=== PATIENT | female | born 1970 | race Caucasian/White ===

== ENCOUNTER 2016-05-14 13:52 | Emergency (ER) | payer OTHER ==
--- NOTE | 2016-05-14 15:02 | DIAGNOSTIC IMAGING REPORT ---
PROCEDURE: XR THORACIC SPINE 3 VIEWS INDICATION: TRAUMA/INJURY TECHNIQUE: Three views. COMPARISON: None. FINDINGS: Osseous structures and disc spaces are normal. No evidence of an acute process or fracture. IMPRESSION: 1. Negative thoracic spine.
--- NOTE | 2016-05-14 15:03 | DIAGNOSTIC IMAGING REPORT ---
PROCEDURE: XR LUMBAR SPINE 2 OR 3 VIEWS INDICATION: TRAUMA/INJURY TECHNIQUE: Three views. COMPARISON: None. FINDINGS: Osseous structures and disc spaces are normal. No evidence of an acute process or fracture. IMPRESSION: 1. Negative lumbar spine.
--- NOTE | 2016-05-14 15:11 | ED CLINICAL REPORT ---
Clinical Report - Physicians/Mid Levels [facility] [address] [place] [address] 05/14/2016 13:52 [id number] Time Seen: 14:08 May 14 2016. Arrived- By private vehicle. Historian- patient, family and significant other. HISTORY OF PRESENT ILLNESS Location of injuries- mid and lower back. Chief Complaint: FALL. The injury occurred just prior to arrival. Occurred at home. Fell. No fainting episodes. The patient complains of mild pain and moderate pain. No neck pain or loss of consciousness. (fell down 4-5 steps laminte at home , no loc, haines been in shock, not able to bear weight due to pain). REVIEW OF SYSTEMS No loss of vision, chest pain, weakness, headache or nausea. No abdominal pain, laceration or vomiting. All systems otherwise negative, except as recorded above. PAST HISTORY Tetanus immunization status is up-to-date. SOCIAL HISTORY Never smoker. Alcohol use. History of drug use: marijuana. Not an IV drug user. ADDITIONAL NOTES The nursing notes have been reviewed. PHYSICAL EXAM Vital Signs: 05/14/2016 14:13 BP: 107/56. HR: 65. RR: 18. O2 saturation: 100%. Temp: 98.9 F. Appearance: Alert. Appears to be in pain. Patient in mild distress. No acute distress. No backboard or C-collar. Head: Head non-tender. No Simeon's sign. Eyes: No abnormal funduscopic findings. No ocular injury. Neck: Painless ROM. Non-tender. Posterior neck: No tenderness or swelling. CVS: Heart sounds normal. Respiratory: Breath sounds normal. Chest nontender. No chest wall injury or decreased breath sounds. Abdomen: No visible injury. Soft. Back: No tenderness. ROM normal. Skin: Skin intact. Skin warm. Extremities: Normal inspection. No abrasions. Pelvis stable. Neuro: Omar Coma Scale: 15- eyes open spontaneously (4); best verbal response- oriented x 3 (5); best motor response- obeys commands (6). Oriented X 3. No alteration in mental status. LABS, X-RAYS, AND EKG X-Rays: LS spine series. T-Spine X-rays: (IMPRESSION: 1. Negative thoracic spine. Electronically Final signed by:Alessio Stuart MD 05/14/2016 3:05:57 PM). LS-Spine X-rays: (IMPRESSION: 1. Negative lumbar spine. Electronically Final signed by:Alessio Stuart MD 05/14/2016 3:06:40 PM). PROGRESS AND PROCEDURES Course of Care: Pt with no signs of fx. No injury to head/ neck. NO le pain or swelling. Pt able to stand/ ambulate with assistance, at bedside. XR negative. Pt given pain control in ER. Stable. To f/u outpatient. 05/14/2016 15:20 BP: 104/59. HR: 70. RR: 16. O2 saturation: 100%. Temp: 98.0 F. Patient is stable. Physical exam findings are improved. Symptoms better. Patient/family counseled. Disposition: Discharged. CLINICAL IMPRESSION Contusion to the lower back, right and left buttocks and right forearm. INSTRUCTIONS Apply ice. Prescription Medications: Hydrocodone/APAP 5mg / 325mg: take 1 orally every 6 hours as needed for pain. Dispense twelve (12). No refill. Ibuprofen 800 mg tablets: take 1 tablet orally every 8 hours for 5 days, as needed for pain. Dispense fifteen (15). No refill. Follow-up: Follow up with your doctor in three days. (Electronically signed by Guillermina Duarte P.A.-C 05/14/2016 15:46)
--- NOTE | 2016-05-14 15:11 | ED ORDER SUMMARY ---
..... Patient: RICARDO MATTA OrderSheet [facility] VisitID: [id number] [place] [address] 45y, F Registration Date/Time: 05/14/2016 ORDER SHEET Weight: 65.7 kg (stated) Allergies: Codeine, Morphine and Related GENERAL ORDERS: Lumbar Spine 2 or 3V Urgent (14:16 05/14/2016 EKoroleva P.A.-C) (Ack 14:18 TBergley) (15:20 EInderbitzen R.N.) Thoracic Spine 3V Urgent (14:16 05/14/2016 EKoroleva P.A.-C) (Ack 14:18 TBergley) (15:20 EInderbitzen R.N.) MEDICATION ORDERS: Percocet PO 5/325 mg (HIGH ALERT MEDICATION, NOW) (14:15 05/14/2016 EKoroleva P.A.-C) (14:26 EInderbitzen R.N.) Zofran ODT PO 4 mg (NOW) (14:24 05/14/2016 EKoroleva P.A.-C) (14:27 EInderbitzen R.N.) IV FLUIDS: ORDER SHEET NOTES: [Electronically signed by Maddy Valerio R.N. (15:20 05/14/2016)] [Electronically signed by Guillermina Duarte P.A.-C (15:46 05/14/2016)] [Electronically locked/signed by Maddy Valerio R.N. (15:20 05/14/2016)]
--- NOTE | 2016-05-14 15:11 | ED ORDER SUMMARY ---
..... Patient: RICARDO MATTA OrderSheet [facility] VisitID: [id number] [place] [address] 45y, F Registration Date/Time: 05/14/2016 ORDER SHEET Weight: 65.7 kg (stated) Allergies: Codeine, Morphine and Related GENERAL ORDERS: Lumbar Spine 2 or 3V Urgent (14:16 05/14/2016 EKoroleva P.A.-C) (Ack 14:18 TBergley) (15:20 EInderbitzen R.N.) Thoracic Spine 3V Urgent (14:16 05/14/2016 EKoroleva P.A.-C) (Ack 14:18 TBergley) (15:20 EInderbitzen R.N.) MEDICATION ORDERS: Percocet PO 5/325 mg (HIGH ALERT MEDICATION, NOW) (14:15 05/14/2016 EKoroleva P.A.-C) (14:26 EInderbitzen R.N.) Zofran ODT PO 4 mg (NOW) (14:24 05/14/2016 EKoroleva P.A.-C) (14:27 EInderbitzen R.N.) IV FLUIDS: ORDER SHEET NOTES: [Electronically signed by Maddy Valerio R.N. (15:20 05/14/2016)] [Electronically signed by Guillermina Duarte P.A.-C (15:46 05/14/2016)] [Electronically locked/signed by Maddy Valerio R.N. (15:20 05/14/2016)]
--- NOTE | 2016-05-14 15:11 | ED CLINICAL REPORT ---
Clinical Report - Physicians/Mid Levels [facility] [address] [place] [address] 05/14/2016 13:52 [id number] Time Seen: 14:08 May 14 2016. Arrived- By private vehicle. Historian- patient, family and significant other. HISTORY OF PRESENT ILLNESS Location of injuries- mid and lower back. Chief Complaint: FALL. The injury occurred just prior to arrival. Occurred at home. Fell. No fainting episodes. The patient complains of mild pain and moderate pain. No neck pain or loss of consciousness. (fell down 4-5 steps laminte at home , no loc, haines been in shock, not able to bear weight due to pain). REVIEW OF SYSTEMS No loss of vision, chest pain, weakness, headache or nausea. No abdominal pain, laceration or vomiting. All systems otherwise negative, except as recorded above. PAST HISTORY Tetanus immunization status is up-to-date. SOCIAL HISTORY Never smoker. Alcohol use. History of drug use: marijuana. Not an IV drug user. ADDITIONAL NOTES The nursing notes have been reviewed. PHYSICAL EXAM Vital Signs: 05/14/2016 14:13 BP: 107/56. HR: 65. RR: 18. O2 saturation: 100%. Temp: 98.9 F. Appearance: Alert. Appears to be in pain. Patient in mild distress. No acute distress. No backboard or C-collar. Head: Head non-tender. No Simeon's sign. Eyes: No abnormal funduscopic findings. No ocular injury. Neck: Painless ROM. Non-tender. Posterior neck: No tenderness or swelling. CVS: Heart sounds normal. Respiratory: Breath sounds normal. Chest nontender. No chest wall injury or decreased breath sounds. Abdomen: No visible injury. Soft. Back: No tenderness. ROM normal. Skin: Skin intact. Skin warm. Extremities: Normal inspection. No abrasions. Pelvis stable. Neuro: Omar Coma Scale: 15- eyes open spontaneously (4); best verbal response- oriented x 3 (5); best motor response- obeys commands (6). Oriented X 3. No alteration in mental status. LABS, X-RAYS, AND EKG X-Rays: LS spine series. T-Spine X-rays: (IMPRESSION: 1. Negative thoracic spine. Electronically Final signed by:Alessio Stuart MD 05/14/2016 3:05:57 PM). LS-Spine X-rays: (IMPRESSION: 1. Negative lumbar spine. Electronically Final signed by:Alessio Stuart MD 05/14/2016 3:06:40 PM). PROGRESS AND PROCEDURES Course of Care: Pt with no signs of fx. No injury to head/ neck. NO le pain or swelling. Pt able to stand/ ambulate with assistance, at bedside. XR negative. Pt given pain control in ER. Stable. To f/u outpatient. 05/14/2016 15:20 BP: 104/59. HR: 70. RR: 16. O2 saturation: 100%. Temp: 98.0 F. Patient is stable. Physical exam findings are improved. Symptoms better. Patient/family counseled. Disposition: Discharged. CLINICAL IMPRESSION Contusion to the lower back, right and left buttocks and right forearm. INSTRUCTIONS Apply ice. Prescription Medications: Hydrocodone/APAP 5mg / 325mg: take 1 orally every 6 hours as needed for pain. Dispense twelve (12). No refill. Ibuprofen 800 mg tablets: take 1 tablet orally every 8 hours for 5 days, as needed for pain. Dispense fifteen (15). No refill. Follow-up: Follow up with your doctor in three days. (Electronically signed by Guillermina Duarte P.A.-C 05/14/2016 15:46)
--- NOTE | 2016-05-14 15:11 | ED NURSING NOTES ---
Clinical Report - Nurses [facility] [address] [place] [address] 05/14/2016 13:52 Patient: RICARDO MATTA TRIAGE Triage time 14:May 14 2016. Acuity: LEVEL 4. Chief Complaint: FALL DOWN 4 STAIRS while walking, onto a carpeted surface; slipped. OMAR COMA SCORE: Omar Coma Scale: 15- eyes open spontaneously (4); best verbal response- oriented x 4 (5); best motor response- obeys commands (6). --14:19 Maddy Valerio R.N. 14:13 05/14/16. BP: 107/56. HR: 65. RR: 18. O2 saturation: 100%. Temp: 98.9 F. Pain level now 01/26. --14:19 Maddy Valerio R.N. Weight: 65.7 kg stated. Height/Length: 64 inches Per Patient. BMI: 24.9. --14:05 Maddy Valerio R.N. Medications Gabapentin Oral. --14:18 Maddy Valerio R.N. TiZANidine HCl Oral. --14:19 Maddy Valerio R.N. Lexapro Oral. --14:19 Maddy Valerio R.N. Allergies Codeine. Morphine and Related. --14:18 Maddy Valerio R.N. Medication/allergy information source: the patient. --14:19 Maddy Valerio R.N. History Arrived by private vehicle. Historian: patient. Accompanied by family. This occurred just prior to arrival. She has had right extremity pain. She has had moderate mid and lower back pain. No loss of consciousness. No alteration in mental status, dizziness or neck pain. Treatment PASSENGER SERVICE MANAGER: None. PAST MEDICAL HX: Last normal menstrual period- . SOCIAL HX: Never smoker. Occasional alcohol use. History of drug use: marijuana. No infectious disease exposure. ABUSE ASSESSMENT: No report of abuse. SELF HARM ASSESSMENT: A self harm assessment was performed. The patient answered "no" to the question "Have you recently felt down, depressed, or hopeless?", "Have you noticed less interest or pleasure in doing things?", "Do you have thoughts of harming or killing yourself?", "Are you here because you tried to hurt yourself?", "Have you ever tried to hurt yourself before today?", "Have you recently had thoughts about harming or killing others?" and "Do you have any dangerous items in your possession?". FALL RISK ASSESSMENT: Fall risk assessment completed. No fall risk identified. NUTRITIONAL RISK ASSESSMENT: The nutritional risk assessment revealed no deficiencies. FUNCTIONAL ASSESSMENT: Functional assessment: no impairments noted. LEARNING NEEDS ASSESSMENT: The learning needs assessment revealed no barriers. SKIN INTEGRITY ASSESSMENT: Skin integrity risk assessment completed. No skin integrity risk identified. --14:19 Maddy Valerio R.N. PROBLEMS: Bipolar Disorder. Thoracic outlet syndrome. Myofascial Strain. Intervertebral Disc Disease. --14:19 Maddy Valerio R.N. ADDITIONAL SURGERIES: Back Surgery. Hernia Repair. --14:19 Maddy Valerio R.N. Interventions ID band on patient. --14:19 Maddy Valerio R.N. PHYSICAL ASSESSMENT GENERAL / NEURO / PSYCH: Alert. Oriented X 4. HEENT: Pupils equal, round and reactive to light. RESPIRATORY: Breath sounds within normal limits. CVS: Pulses within normal limits. GI / : Abdomen soft and nontender. EXTREMITIES: Extremities exhibit normal ROM. Neuro-vascular status intact to the extremity. She was able to bear weight. No limited ROM present. Right shoulder: tenderness located in the anterior and posterior aspect of the shoulder. SKIN: Skin is warm and dry. BACK: Back: tenderness located in the mid- lumbar area and mid-thoracic area. Muscle spasm present. --14:21 Maddy Valerio R.N. NURSING PROGRESS NOTES 14:05 05/14/16. The initial plan of care for this patient includes an assessment with efforts to address the presence of pain. This plan of care was discussed with the patient. Patient gowned. Reassurance given to the patient. Two patient identifiers checked. Call light placed in reach. Side rails up x 1. Bed placed in lowest position. Brakes of bed on. Patient ready for evaluation. --14:20 Maddy Valerio R.N. 14:05/14/2016 Percocet (Oxycodone-Acetaminophen) PO 5/325 mg Tablets 1 tab given. Allergies verified, confirmed 5 rights and sedative warning given to the patient and patient's family. --14:26 Maddy Valerio R.N. 14:05/14/2016 Zofran ODT (Ondansetron) PO Oral Disintegrating Tablets 4 mg given. Allergies verified and confirmed 5 rights. --14:27 Maddy Valerio R.N. 14:05/14/16. Patient transported to radiology by stretcher. --14:27 Maddy Valerio R.N. 15:05/14/16. Reassessment after medication administered. She has had no adverse reaction. Overall patient status is improved- she states feels better. GENERAL / NEURO / PSYCH: The patient reports pain is still present but improving and currently moderate in severity. Alert. Oriented X 4. RESPIRATORY: No respiratory distress. --15:03 Maddy Valerio R.N. DISPOSITION / DISCHARGE 15:20 05/14/16. Departure time: 15:May 14 2016. Condition at departure: improved and stable. The goals identified in the patient's plan of care were met. No learning barriers present. Discharge instructions provided and reviewed with the patient. Reviewed medication(s) side effects, precautions, dosing and course information. Prescription(s) given to the patient. Reviewed referral to a primary care physician for followup. Patient verbalized understanding. Written instructions provided in Luxembourgish. The patient was discharged home and accompanied by spouse. She left the Emergency Department ambulatory and via private vehicle. Spouse driving. --15:20 Maddy Valerio R.N. 15:20 05/14/16. BP: 104/59. HR: 70. RR: 16. O2 saturation: 100%. Temp: 98.0 F. Pain level now 5/10. --15:20 Maddy Valerio R.N. Locked/Released at 05/14/2016 15:20 by Maddy Valerio R.N.
--- NOTE | 2016-05-14 15:47 | ED MED RECONCILIATION SUMMARY ---
Patient: RICARDO MATTA Medication Reconciliation Report [facility] VisitID: [id number] [address] [place] [address] 45y, F Registration Date/Time: 05/14/2016 Weight: 65.7 kg Height/Length: 64 in. BMI: 24.9 ALLERGIES: Codeine, Morphine and Related The patient's Home Medications are listed below: THE FOLLOWING MEDICATIONS NEED TO BE RECONCILED: Gabapentin Oral Lexapro Oral TiZANidine HCl Oral The source(s) of the original Home Medication information: patient The following Medications were given to the patient in the Emergency Department: Percocet [PO] PO 1 tab, administered: 05/14/2016 2:26:00 PM Zofran ODT [PO] PO 4 mg, administered: 05/14/2016 2:27:00 PM The following Medications were prescribed to the patient: Hydrocodone/APAP 5mg / 325mg: take 1 orally every 6 hours as needed for pain. Dispense twelve (12). No refill. -- Guillermina Duarte, P.A.-C Ibuprofen 800 mg tablets: take 1 tablet orally every 8 hours for 5 days, as needed for pain. Dispense fifteen (15). No refill. -- Guillermina Duarte, P.A.-C
--- NOTE | 2016-05-14 15:47 | ED MAR SUMMARY ---
..... Medication Administration Record [facility] [address] [place] [address] Patient: RICARDO MATTA Visit ID: [id number] 45y, F Weight: 65.7 kg Height/Length: 64 in BMI: 24.9 ALLERGIES: Codeine, Morphine and Related Given 14:05/14/2016 Maddy Valerio R.N. Medication Administered: PERCOCET [PO] (OXYCODONE-ACETAMINOPHEN), Dose: 1 tab 5/325 mg Tablets PO. Medication Ordered: Percocet PO 5/325 mg (HIGH ALERT MEDICATION, NOW). Given 14:05/14/2016 Maddy Valerio R.N. Medication Administered: ZOFRAN ODT [PO] (ONDANSETRON), Dose: 4 mg Oral Disintegrating Tablets PO. Medication Ordered: Zofran ODT PO 4 mg (NOW).
--- NOTE | 2016-05-14 15:47 | ED MAR SUMMARY ---
..... Medication Administration Record Merged With [facility] [address] [place] [address] Patient: RICARDO MATTA Visit ID: [id number] 45y, F Weight: 65.7 kg Height/Length: 64 in BMI: 24.9 ALLERGIES: Codeine, Morphine and Related Given 14:05/14/2016 Maddy Valerio R.N. Medication Administered: PERCOCET [PO] (OXYCODONE-ACETAMINOPHEN), Dose: 1 tab 5/325 mg Tablets PO. Medication Ordered: Percocet PO 5/325 mg (HIGH ALERT MEDICATION, NOW). Given 14:05/14/2016 Maddy Valerio R.N. Medication Administered: ZOFRAN ODT [PO] (ONDANSETRON), Dose: 4 mg Oral Disintegrating Tablets PO. Medication Ordered: Zofran ODT PO 4 mg (NOW).
--- NOTE | 2016-05-14 15:47 | ED MED RECONCILIATION SUMMARY ---
Patient: RICARDO MATTA Medication Reconciliation Report [facility] VisitID: [id number] [address] [place] [address] 45y, F Registration Date/Time: 05/14/2016 Weight: 65.7 kg Height/Length: 64 in. BMI: 24.9 ALLERGIES: Codeine, Morphine and Related The patient's Home Medications are listed below: THE FOLLOWING MEDICATIONS NEED TO BE RECONCILED: Gabapentin Oral Lexapro Oral TiZANidine HCl Oral The source(s) of the original Home Medication information: patient The following Medications were given to the patient in the Emergency Department: Percocet [PO] PO 1 tab, administered: 05/14/2016 2:26:00 PM Zofran ODT [PO] PO 4 mg, administered: 05/14/2016 2:27:00 PM The following Medications were prescribed to the patient: Hydrocodone/APAP 5mg / 325mg: take 1 orally every 6 hours as needed for pain. Dispense twelve (12). No refill. -- Guillermina Duarte, P.A.-C Ibuprofen 800 mg tablets: take 1 tablet orally every 8 hours for 5 days, as needed for pain. Dispense fifteen (15). No refill. -- Guillermina Duarte, P.A.-C
--- NOTE | 2016-05-14 15:47 | ED DISCHARGE INSTRUCTIONS ---
Patient: RICARDO MATTA General Instructions [facility] VisitID: [id number] [place] [address] 45y, F Registration Date/Time: 05/14/2016 Contusion to the lower back, right and left buttocks and right forearm. INSTRUCTIONS Apply ice. Prescription Medications: Hydrocodone/APAP 5mg / 325mg: take 1 orally every 6 hours as needed for pain. Dispense twelve (12). No refill. Ibuprofen 800 mg tablets: take 1 tablet orally every 8 hours for 5 days, as needed for pain. Dispense fifteen (15). No refill. Follow-up: Follow up with your doctor in three days. ADDITIONAL INFORMATION Contusion, Back You have a CONTUSION of the back. This is a bruise with swelling and some bleeding under the skin. There are no broken bones. This injury takes a few days to a few weeks to heal. It is normal to feel muscle stiffness and aching in the area of injury the next day. Home Care: 1) Rest and relax your back muscles until you are feeling better. 2) Apply an ice pack (crushed or cubed ice in a plastic bag, wrapped in a towel) for 20 minutes every 2-4 hours during the first two days after a new injury. Local heat (hot shower, hot bath or heating pad) and massage will help reduce muscle spasm . Some patients feel best alternating treatments. Use the method that feels best to you for. 3) You may use acetaminophen (Tylenol) or ibuprofen (Motrin, Advil) to control pain, unless another pain medicine was prescribed. [ NOTE : If you have chronic liver or kidney disease or ever had a stomach ulcer or GI bleeding, talk with your doctor before using these medicines.] Follow Up with your doctor or this facility if your symptoms do not start to improve after three days. [NOTE: If X-rays were taken, they will be reviewed by a radiologist. You will be notified of any new findings that may affect your care.] Get Prompt Medical Attention if any of the following occur: -- Pain becomes worse or spreads to one or both legs -- Weakness or numbness in one or both legs -- Loss of bowel or bladder control -- Numbness in the groin or genital area -- Redness, warmth or drainage from the skin You have been given the following additional information: Contusion, Back (Electronically signed by Guillermina Duarte P.A.-C 05/14/2016 15:46)
== END 2016-05-14 15:20 | disposition home or self-care (01) ==
LOC: ED SRH 13:52
DX: S30.0XXA Contusion of lower back and pelvis, initial encounter (principal); S50.11XA Contusion of right forearm, initial encounter; W10.9XXA Fall (on) (from) unspecified stairs and steps, initial encounter; Y93.01 Activity, walking, marching and hiking; Y92.009 Unspecified place in unspecified non-institutional (private) residence as the place of occurrence of the external cause; Y99.9 Unspecified external cause status; Z88.5 Allergy status to narcotic agent